=== PATIENT | female | born 1965 | race Caucasian/White ===

== ENCOUNTER → 2017-04-12 | Outpatient (CLI) | payer MEDICAID ==
[2017-04-12 10:36] LABS: BASOPHILS # (AUTO) 0.1 10^3/uL (0.0-0.1); BASOPHILS % (AUTO) 1 % (0-10); EOSINOPHILS # (AUTO) 0.2 10^3/uL (0.0-0.3); EOSINOPHILS % (AUTO) 1 % (0-10); LYMPHOCYTES # (AUTO) 3.7 X 10^3 (1.0-4.0); LYMPHOCYTES % (AUTO) 35 % (12-44); MEAN CORPUSCULAR HEMOGLOBIN 31 PG (25-34); MEAN CORPUSCULAR HGB CONC 33 G/DL (32-36); MEAN CORPUSCULAR VOLUME 93 FL (80-99); MEAN PLATELET VOLUME 10.3 FL (7.4-10.4); MONOCYTES # (AUTO) 0.6 X 10^3 (0.0-1.0); MONOCYTES % (AUTO) 6 % (0-12); NEUTROPHILS % (AUTO) 57 % (42-75); PLATELET COUNT 313 10^3/uL (130-400); RED BLOOD COUNT 4.63 10^6/uL (4.35-5.85); WHITE BLOOD COUNT 10.5 10^3/uL (4.3-11.0)
[2017-04-12 10:54] LABS: ALBUMIN 4.4 GM/DL (3.2-4.5); BILIRUBIN,TOTAL 0.4 MG/DL (0.1-1.0); CALCIUM 9.6 MG/DL (8.5-10.1); CREATININE SERUM 1.12 MG/DL (0.60-1.30); POTASSIUM 4.1 MMOL/L (3.6-5.0); TOTAL PROTEIN 7.3 GM/DL (6.4-8.2)
== END ==
LOC: ONC 10:20
PROVIDERS: ATTEND Internal Medicine Hematology & Oncology
DX: Z08 Encounter for follow-up examination after completed treatment for malignant neoplasm (principal); C85.95 Non-Hodgkin lymphoma, unspecified, lymph nodes of inguinal region and lower limb; B20 Human immunodeficiency virus [HIV] disease; Z92.21 Personal history of antineoplastic chemotherapy; Z79.899 Other long term (current) drug therapy
CPT/HCPCS: 36415; 80053; 83615; 85025; 99213

== ENCOUNTER 2018-05-02 09:30 | Outpatient (RCR) | payer MEDICAID ==
[2018-05-02 09:47] LABS: BASOPHILS # (AUTO) 0.1 10^3/uL (0.0-0.1); BASOPHILS % (AUTO) 1 % (0-10); EOSINOPHILS # (AUTO) 0.1 10^3/uL (0.0-0.3); EOSINOPHILS % (AUTO) 1 % (0-10); HEMATOCRIT 44 % (35-52); HEMOGLOBIN 14.8 G/DL (11.5-16.0); LYMPHOCYTES # (AUTO) 3.3 X 10^3 (1.0-4.0); LYMPHOCYTES % (AUTO) 38 % (12-44); MEAN CORPUSCULAR HEMOGLOBIN 31 PG (25-34); MEAN CORPUSCULAR HGB CONC 34 G/DL (32-36); MEAN CORPUSCULAR VOLUME 93 FL (80-99); MEAN PLATELET VOLUME 10.4 FL (7.4-10.4); MONOCYTES # (AUTO) 0.5 X 10^3 (0.0-1.0); MONOCYTES % (AUTO) 6 % (0-12); NEUTROPHILS # (AUTO) 4.7 X 10^3 (1.8-7.8); NEUTROPHILS % (AUTO) 55 % (42-75); PLATELET COUNT 316 10^3/uL (130-400); RED CELL DISTRIBUTION WIDTH 12.8 % (10.0-14.5); WHITE BLOOD COUNT 8.6 10^3/uL (4.3-11.0)
[2018-05-02 10:05] LABS: ALANINE AMINOTRANSFERASE 19 U/L (0-55); ALBUMIN 4.8 GM/DL (3.2-4.5); ALKALINE PHOSPHATASE 45 U/L (40-136); BILIRUBIN,TOTAL 0.5 MG/DL (0.1-1.0); BUN/CREATININE RATIO 16; CALCIUM 9.9 MG/DL (8.5-10.1); CARBON DIOXIDE 25 MMOL/L (21-32); CHLORIDE 103 MMOL/L (98-107); CREATININE SERUM 1.16 MG/DL (0.60-1.30); GFR ESTIMATED 49; GLUCOSE 124 MG/DL (70-105); SODIUM 139 MMOL/L (135-145); TOTAL PROTEIN 7.8 GM/DL (6.4-8.2)
== END 2018-07-31 | disposition home or self-care (01) ==
LOC: ONC 09:30
PROVIDERS: ATTEND Internal Medicine Hematology & Oncology
DX: C85.95 Non-Hodgkin lymphoma, unspecified, lymph nodes of inguinal region and lower limb (principal); Z08 Encounter for follow-up examination after completed treatment for malignant neoplasm; B20 Human immunodeficiency virus [HIV] disease; Z92.21 Personal history of antineoplastic chemotherapy; Z79.899 Other long term (current) drug therapy
CPT/HCPCS: 36415; 80053; 83615; 85025; 99213

== ENCOUNTER → 2018-12-10 | Outpatient (CLI) | payer MEDICAID ==
--- NOTE | 2018-12-10 10:03 | Diagnostic Imaging Report ---
Clinical indication: Patient with neck pain. No recent injury. Exam: X-ray of the cervical spine, 3 views including odontoid views. Comparison: None. Findings: There is no acute fracture or dislocation. There is small anterior spurs seen from the C4-C6 levels. Intervertebral disc heights are well-maintained. There is no prevertebral soft tissue swelling. Odontoid views are unremarkable. Impression: 1: Mild cervical spine degenerative disease. Dictated by: Dictated on workstation # [id number]
== END ==
LOC: RAD FS 09:28
PROVIDERS: ATTEND Nurse Practitioner Family
DX: M47.812 Spondylosis without myelopathy or radiculopathy, cervical region (principal)
CPT/HCPCS: 72040

== ENCOUNTER → 2019-05-02 | Outpatient (CLI) | payer MEDICAID ==
[~2019-05-02] MED LIST: BICT1TAB PO; HYDR-87 PO; LOSA50TA63 PO; METF-397 PO; MONT10TA24 PO; OMEP40CA36 PO; TIZA2CAP PO; TRIA10.8 NS
[2019-05-02 09:31] LABS: BASOPHILS # (AUTO) 0.1 10^3/uL (0.0-0.1); BASOPHILS % (AUTO) 1 % (0-10); EOSINOPHILS # (AUTO) 0.2 10^3/uL (0.0-0.3); EOSINOPHILS % (AUTO) 2 % (0-10); HEMATOCRIT 41 % (35-52); HEMOGLOBIN 13.5 G/DL (11.5-16.0); LYMPHOCYTES # (AUTO) 3.2 X 10^3 (1.0-4.0); LYMPHOCYTES % (AUTO) 38 % (12-44); MEAN CORPUSCULAR HEMOGLOBIN 31 PG (25-34); MEAN CORPUSCULAR HGB CONC 33 G/DL (32-36); MEAN CORPUSCULAR VOLUME 93 FL (80-99); MEAN PLATELET VOLUME 10.6 FL (7.4-10.4); MONOCYTES # (AUTO) 0.5 X 10^3 (0.0-1.0); MONOCYTES % (AUTO) 6 % (0-12); NEUTROPHILS # (AUTO) 4.6 X 10^3 (1.8-7.8); NEUTROPHILS % (AUTO) 53 % (42-75); PLATELET COUNT 370 10^3/uL (130-400); RED CELL DISTRIBUTION WIDTH 13.5 % (10.0-14.5); WHITE BLOOD COUNT 8.6 10^3/uL (4.3-11.0)
[2019-05-02 09:56] LABS: ALBUMIN 4.5 GM/DL (3.2-4.5); BILIRUBIN,TOTAL 0.4 MG/DL (0.1-1.0); CALCIUM 9.2 MG/DL (8.5-10.1); CREATININE SERUM 1.21 MG/DL (0.60-1.30); TOTAL PROTEIN 7.1 GM/DL (6.4-8.2)
== END ==
LOC: EDSTATUS 08-01 09:04 → ONC 09:05
PROVIDERS: ATTEND Internal Medicine Hematology & Oncology
DX: Z08 Encounter for follow-up examination after completed treatment for malignant neoplasm (principal); C85.95 Non-Hodgkin lymphoma, unspecified, lymph nodes of inguinal region and lower limb; B20 Human immunodeficiency virus [HIV] disease; Z92.21 Personal history of antineoplastic chemotherapy; Z79.899 Other long term (current) drug therapy
CPT/HCPCS: 80053; 83615; 85025; 99213

== ENCOUNTER 2019-05-14 05:37 | Outpatient (CLI) | payer MEDICAID ==
[~2019-05-14] VITALS: Ht 162.6 cm; Wt 87.3 kg
[2019-05-14] MEDS ORDERED: BICT1TAB PO (11:42)
[2019-05-14] MEDS ORDERED: LOSA50TA63 PO (11:54)
[2019-05-14] MEDS ORDERED: TRIA10.8 NS (11:54)
[2019-05-14] MEDS ORDERED: METF-397 PO (11:54)
[2019-05-14] MEDS ORDERED: OMEP40CA36 PO (11:54)
[2019-05-14] MEDS ORDERED: HYDR-87 PO (11:54)
[2019-05-14] MEDS ORDERED: TIZA2CAP PO (11:54)
[2019-05-14] MEDS ORDERED: MONT10TA24 PO (11:54)
== END 2019-05-14 11:56 | disposition home or self-care (01) ==
LOC: PREOP 05:37
PROVIDERS: ATTEND Surgery
DX: Z01.818 Encounter for other preprocedural examination (principal)

== ENCOUNTER → 2020-03-11 | Outpatient (CLI) | payer MEDICAID ==
[~2020-03-11] MED LIST changes: -MONT10TA24 PO; +MONT10TA26 PO; +OMEP40CA27 PO; -OMEP40CA36 PO
--- NOTE | 2020-03-11 09:45 | Diagnostic Imaging Report ---
INDICATION: Cough for 3 weeks. TIME OF EXAM: 9:27 AM No prior studies are available for comparison. FINDINGS: The heart size is normal. The pulmonary vascularity is unremarkable. The lungs are clear. No infiltrate, effusion or pneumothorax is detected. IMPRESSION: No acute cardiopulmonary process is detected. Dictated by: Dictated on workstation # [id number]
== END ==
LOC: RAD FS 09:18
PROVIDERS: ATTEND Nurse Practitioner Family
DX: R05 Cough (principal)
CPT/HCPCS: 71046

== ENCOUNTER → 2020-07-01 | Outpatient (CLI) | payer MEDICAID ==
[~2020-07-01] MED LIST changes: -MONT10TA26 PO; +MONT10TA32 PO
[2020-07-01 09:51] LABS: BASOPHILS % (AUTO) 0 % (0-10); EOSINOPHILS # (AUTO) 0.1 10^3/uL (0.0-0.3); EOSINOPHILS % (AUTO) 1 % (0-10); HEMATOCRIT 40 % (35-52); HEMOGLOBIN 13.7 g/dL (11.5-16.0); LYMPHOCYTES # (AUTO) 3.9 10^3/uL (1.0-4.0); LYMPHOCYTES % (AUTO) 40 % (12-44); MEAN CORPUSCULAR HEMOGLOBIN 33 pg (25-34); MEAN CORPUSCULAR HGB CONC 34 g/dL (32-36); MEAN CORPUSCULAR VOLUME 96 fL (80-99); MEAN PLATELET VOLUME 10.2 fL (9.0-12.2); MONOCYTES # (AUTO) 0.6 10^3/uL (0.0-1.0); MONOCYTES % (AUTO) 6 % (0-12); NEUTROPHILS # (AUTO) 5.1 10^3/uL (1.8-7.8); NEUTROPHILS % (AUTO) 53 % (42-75); PLATELET COUNT 297 10^3/uL (130-400); WHITE BLOOD COUNT 9.7 10^3/uL (4.3-11.0)
[2020-07-01 10:18] LABS: ALANINE AMINOTRANSFERASE 16 U/L (0-55); ALBUMIN 4.2 GM/DL (3.2-4.5); ALKALINE PHOSPHATASE 51 U/L (40-136); BILIRUBIN,TOTAL 0.6 MG/DL (0.1-1.0); BUN/CREATININE RATIO 18; CALCIUM 9.4 MG/DL (8.5-10.1); CARBON DIOXIDE 25 MMOL/L (21-32); CHLORIDE 107 MMOL/L (98-107); CREATININE SERUM 0.82 MG/DL (0.60-1.30); GFR ESTIMATED > 60; GLUCOSE 110 MG/DL (70-105); SODIUM 142 MMOL/L (135-145); TOTAL PROTEIN 6.9 GM/DL (6.4-8.2)
== END ==
LOC: ONC 09:40
PROVIDERS: ATTEND Internal Medicine Hematology & Oncology
DX: C83.30 Diffuse large B-cell lymphoma, unspecified site (principal); B20 Human immunodeficiency virus [HIV] disease; I12.9 Hypertensive chronic kidney disease with stage 1 through stage 4 chronic kidney disease, or unspecified chronic kidney disease; N18.30 Chronic kidney disease, stage 3 unspecified; E11.9 Type 2 diabetes mellitus without complications; R63.4 Abnormal weight loss
CPT/HCPCS: 80053; 83615; 85025; G0463; 99213

== ENCOUNTER 2021-06-13 11:42 | Emergency (ER) | payer MEDICAID ==
[~2021-06-13] VITALS: Ht 162.6 cm; Wt 68.4 kg
[~2021-06-13 11:42] MED LIST changes: +MONT-40 PO; -MONT10TA32 PO; -OMEP40CA27 PO; +OMEP40CA6 PO
[2021-06-13] MEDS ORDERED: methylPREDNISolone 80 MG/ML (DEPO MEDROL) VIAL IM STA (11:59)
--- NOTE | 2021-06-13 12:07 | ED Lower Extremity ---
General Stated Complaint: LT LEG PAIN Source: patient History of Present Illness Date Seen by Provider: Jun 13, 2021 Time Seen by Provider: 11:45 Initial Comments 56 yo female presenting with complaints of left leg pain for over 3 weeks. She initially was having pain going down the back of her left leg. She is seen in the clinic and they felt like she was having sciatica. She is taking tizanidine which has been helping as she also felt like she was having some muscle cramping and spasms. She takes chronic hydrocodone for pain as well since she has a history of lymphoma and had radiation to her other hip. She felt like things were improving until Monday when she was getting out of bed and she had increased pain. She went to urgent care and the had increased her tizanidine from 2 to 4 mg but it makes her really sleepy at that higher dose. With her continued pain and spasms in her legs she came to the emergency department to be evaluated to see if anything else could be done to help with her pain. She wants to get to work the next 3 nights and felt that she was having too much pain walking on her leg to be able to work. 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 She states that urgent care they had also measured the size of her calves to look for signs of a DVT. She does not have increased calf size or redness or warmth to the calf on the left side Pain/Injury Location: left leg, left knee, left thigh Method of Injury: unknown Modifying Factors: Improves With Immobilization; Worse With Movement (and bearing weight) Allergies and Home Medications Allergies Coded Allergies: No Known Allergies (Verified Allergy, Unknown, 11/11/05) Patient Home Medication List Home Medication List Reviewed: Yes Bictegrav/Emtricit/Tenofov Ala (Biktarvy 50-200-25 mg Tablet) 1 Each Tablet, 1 EACH PO DAILY, (Reported) Entered as Reported by: ENMA MEJIA on 05/14/19 1142 Hydrocodone/Ibuprofen (Hydrocodone-Ibuprofen 7.5-200) 1 Each Tablet, 1 TAB PO TID PRN for PAIN-MODERATE, (Reported) Entered as Reported by: ENMA MEJIA on 05/14/19 1154 Losartan Potassium (Losartan Potassium) 50 Mg Tablet, 50 MG PO DAILY, (Reported) Entered as Reported by: ENMA MEJIA on 05/14/19 1154 Metformin HCl (Metformin HCl) 500 Mg Tablet, 500 MG PO BID, (Reported) Entered as Reported by: ENMA MEJIA on 05/14/19 1154 Montelukast Sodium (Montelukast Sodium) 10 Mg Tablet, 10 MG PO DAILY, (Reported) Entered as Reported by: ENMA MEJIA on 05/14/19 1154 Omeprazole (Omeprazole) 40 Mg Capsule.dr, 40 MG PO DAILY, (Reported) Entered as Reported by: ENMA MEJIA on 05/14/19 1154 Tizanidine HCl (Zanaflex) 2 Mg Capsule, 4 MG PO DAILY, (Reported) Entered as Reported by: ENMA MEJIA on 05/14/19 1154 Triamcinolone Acetonide (Nasacort) 10.8 Ml [place], 1 SPRAY NS DAILY, (Reported) Entered as Reported by: ENMA MEJIA on 05/14/19 1154 Review of Systems Constitutional: No chills, No fever EENTM: no symptoms reported Respiratory: no symptoms reported Cardiovascular: no symptoms reported Gastrointestinal: no symptoms reported Genitourinary: no symptoms reported Musculoskeletal: see HPI, muscle pain (left hip going down thigh to knee and calf), muscle stiffness, muscle cramps Skin: No change in color, No rash Psychiatric/Neurological: Paresthesia (chronic neuropathy with her HIV) Past Uzbymsw-Oclcdc-Utenex Hx Patient Social History Tobacco Use?: No Substance use?: No Alcohol Use?: No Immunizations Up To Date Tetanus Booster (TDap): Unknown Seasonal Allergies Seasonal Allergies: Yes Past Medical History Surgery/Hospitalization HX: 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, HIV, HTN, High cholesterol, Hysterectomy, Chronic low back pain Surgeries: Yes (port placed and removed, leg abscess I&D) Hysterectomy, Tubal Ligation Respiratory: No Currently Using CPAP: No Currently Using BIPAP: No Cardiac: Yes High Cholesterol, Hypertension 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 oz. 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 Will try steroid shot of decadron for fast acting effect and depo-medrol for long acting effect. Obtain xrays of femur and tib/fib since she is having pain in these regions and it would also image her knee. Provided those look ok will have her continue the hydrocodone she takes for chronic pain and tizanidine for muscle spasms Progress Note #2: Progress Note No acute significant abnormality seen on the x-ray imaging of the femur or tib- fib. This covers the hip down through the ankle. Counseled patient on results and advised to continue activities as she tolerates them. The steroid should help from an anti-inflammatory standpoint and be stronger than just the ibuprofen. Have her continue follow-up with Keily Bowers and then see what the specialist that you from the [facility] at Diagnostic Imaging Diagonstic Imaging: Xray Plain Films/CT/US/NM/MRI: femur Comments [facility] [place], [place] NAME: FRANCHESCA HOWELL [facility] REC#: [id number] PT STATUS: REG ER : 1965 PHYSICIAN: JASON AVERY MD ADMIT DATE: 06/13/21/ER FS Draft Date of Exam:06/13/21 FEMUR 2 VIEW LEFT HISTORY: Left leg pain since Monday TECHNIQUE: 2 views of the left femur COMPARISON: None FINDINGS: No acute fracture or dislocation is seen in the left femur. Alignment is normal. Joint spaces are preserved. No lytic or blastic lesions are seen. IMPRESSION: 1. No acute osseous abnormality is seen in the left femur. Dictated on workstation # [id number] Dict: 06/13/21 1247 Trans: 06/13/21 1251 [facility] [id number] Interpreted by: ELLEN LARSON MD Electronically signed by: Reviewed: Reviewed by Me Diagonstic Imaging: Xray Plain Films/CT/US/NM/MRI: leg Comments [facility] [place], [place] NAME: FRANCHESCA HOWELL [facility] REC#: [id number] PT STATUS: REG ER : 1965 PHYSICIAN: JASON AVERY MD ADMIT DATE: 06/13/21/ER FS Draft Date of Exam:06/13/21 TIBIA FIBULA 2 VIEW LEFT HISTORY: Left leg pain for 3 weeks. TECHNIQUE: 2 views of the left tibia/fibula COMPARISON: None FINDINGS: No acute fracture or dislocation is seen in the left tibias/fibula. Alignment is normal. Joint spaces are preserved. No lytic or blastic lesions are identified. There is no significant joint effusion in the ankle or knee. There is a large plantar calcaneal enthesophyte. IMPRESSION: No acute or significant osseous abnormality is seen in the left tibia/fibula. Dictated on workstation # [id number] Dict: 06/13/21 1250 Trans: 06/13/21 1252 [facility] [id number] Interpreted by: ELLEN LARSON MD Electronically signed by: Reviewed: Reviewed by Me Departure Impression Primary Impression: Pain of left lower extremity Additional Impression: Muscle spasm of left lower extremity Disposition: HOME, SELF-CARE Condition: Stable Departure-Patient Inst. Decision time for Depature: 13:00 Referrals: KEILY BOWERS APRN (PCP) Primary Care Physician [facility]/[place] (Family) Primary Care Physician Patient Instructions: Muscle Spasm ED, Using Cold for Pain, Using Heat for Pain, Muscle and Bone Pain (DC) Add. Discharge Instructions: The steroid shots from today will help with inflammation over the next week or two. Continue on your regular medicines as well. Continue your activity as tolerated and limit activity that causes back and leg pain. Work/School Note: Work Release Form Date Seen in the Emergency Department: Jun 13, 2021 Return to Work: Jun 13, 2021 Other Restrictions Listed Below: Light duty, limit activity to avoid things that cause leg/back pain Restrictions: Continue restrictions until cleared by clinic. JASON AVERY MD Jun 13, 2021 12:07
--- NOTE | 2021-06-13 12:51 | Diagnostic Imaging Report ---
HISTORY: Left leg pain since Monday TECHNIQUE: 2 views of the left femur COMPARISON: None FINDINGS: No acute fracture or dislocation is seen in the left femur. Alignment is normal. Joint spaces are preserved. No lytic or blastic lesions are seen. IMPRESSION: 1. No acute osseous abnormality is seen in the left femur. Dictated by: Dictated on workstation # [id number]
--- NOTE | 2021-06-13 12:52 | Diagnostic Imaging Report ---
HISTORY: Left leg pain for 3 weeks. TECHNIQUE: 2 views of the left tibia/fibula COMPARISON: None FINDINGS: No acute fracture or dislocation is seen in the left tibias/fibula. Alignment is normal. Joint spaces are preserved. No lytic or blastic lesions are identified. There is no significant joint effusion in the ankle or knee. There is a large plantar calcaneal enthesophyte. IMPRESSION: No acute or significant osseous abnormality is seen in the left tibia/fibula. Dictated by: Dictated on workstation # [id number]
[2021-06-13 13:07] VITALS: BP 126/72
== END 2021-06-13 13:07 | disposition home or self-care (01) ==
LOC: EDUNIT# 11:42 → ER FS 11:43
DX: M79.605 Pain in left leg (principal); M62.838 Other muscle spasm; I10 Essential (primary) hypertension; E11.9 Type 2 diabetes mellitus without complications; G89.29 Other chronic pain; M54.9 Dorsalgia, unspecified; Z79.84 Long term (current) use of oral hypoglycemic drugs; Z79.891 Long term (current) use of opiate analgesic
CPT/HCPCS: 73552; 73590; 96372